=== PATIENT | female | born 1995 | race Two or more races ===

== ENCOUNTER 2021-02-16 16:49 | Emergency (ER) | payer OTHER, SELFPAY ==
--- NOTE | ~2021-02-16 | XR_ITS ---
EXAMINATION: XR CHEST CLINICAL INFORMATION: Hypertension COMPARISON: None TECHNIQUE: Frontal view of the chest was obtained. FINDINGS: No significant abnormality is noted involving the heart, lungs, mediastinum, bony thorax or soft tissues. XR/XR chest 1V IMPRESSION: Unremarkable examination.
[2021-02-16 17:51] VITALS: BP 186/89; PULSE 103; RESP 18; TEMP 37.1; O2SAT 96; BMI 57.6
== END 2021-02-16 19:40 | disposition left against medical advice (07) ==
PROVIDERS: Emergency Provider Emergency Medicine
DX: I10 Essential (primary) hypertension (principal)
CPT/HCPCS: 71045; 99282; 99283

== ENCOUNTER 2021-03-28 09:59 | Outpatient (REF) | payer OTHER, SELFPAY ==
[2021-03-28 11:15] LABS: MANUAL DIFF FLAG NO
[2021-03-28 11:25] LABS: Basophils Percent Auto 0.3 % (0-2); Eosinophils Absolute Auto 0.1 X10*3/uL (0.0-0.4); Eosinophils Percent Auto 1.5 % (0-4); Hematocrit 44.5 % (37-47); Hemoglobin 13.8 g/dl (12.0-16.0); Imm Gran Abs Auto 0.03 X10*3/uL (0.00-0.03); Imm Gran Pct Auto 0.3 % (0.0-0.4); Lymphocytes Absolute Auto 1.7 X10*3/uL (1.2-4.9); Lymphocytes Percent Auto 18.2 % (20-40); Mean Corpuscular Hemoglobin 23.5 pg (27.0-33.0); Mean Corpuscular Volume 75.9 fL (80-98); Mean Platelet Volume 10.2 fL (9.4-12.3); Monocytes Absolute Auto 0.4 X10*3/uL (0.1-1.2); Monocytes Percent Auto 4.7 % (2-11); Neutrophils Absolute Auto 6.9 X10*3/uL (2.0-8.3); Platelet Count 339 X10*3/uL (160-400); Red Blood Count 5.86 X10*6/uL (4.20-5.50); Red Cell Distribution Width 14.2 % (11.0-16.0); White Blood Count 9.2 X10*3/uL (4.8-10.8)
[2021-03-28 12:05] LABS: Alanine Aminotransferase 15 U/L (0-31); Albumin Level 3.8 g/dL (3.5-5.0); Alkaline Phosphatase 80 U/L (39-117); Anion Gap 16 (12-20); Aspartate Amino Transferase 16 U/L (5-31); Bilirubin Total 0.5 mg/dL (0.0-1.0); Blood Urea Nitrogen 9 mg/dL (9-16); Calcium 9.3 mg/dL (8.4-10.2); Carbon Dioxide 22 mmol/L (22-29); Chloride 106 mmol/L (96-108); Cholesterol 243 mg/dL; Estimated Glomerular Filt Rate > 60; Glucose Fasting 105 mg/dL (60-99); HDL Cholesterol 51 mg/dL; LDL Cholesterol Calculated 172 mg/dl; Potassium 4.5 mmol/L (3.3-5.1); Sodium 139 mmol/L (135-145); Triglycerides 103 mg/dL
[2021-03-28 12:07] LABS: TSH reflex Free T4 1.51 uIU/mL (0.32-4.0); Vitamin D 25-OH Total 21.6 ng/mL (>30)
== END 2021-03-28 10:00 | disposition home or self-care (01) ==
LOC: HO.HMGCLDS 09:59
PROVIDERS: PCP Internal Medicine; Visit Provider Internal Medicine
DX: E66.01 Morbid (severe) obesity due to excess calories (principal); I10 Essential (primary) hypertension
CPT/HCPCS: 36415; 80053; 80061; 82306; 84443; 85025

== ENCOUNTER → 2021-06-21 14:05 | Outpatient (BNVA) | payer OTHER, SELFPAY | PROVIDERS: PCP Internal Medicine; Referring Provider Internal Medicine; Visit Provider Internal Medicine | DX: E66.01 Morbid (severe) obesity due to excess calories (principal); I10 Essential (primary) hypertension | CPT/HCPCS: 93005; 99202 ==

== ENCOUNTER 2021-07-07 08:08 | Outpatient (REF) | payer OTHER, SELFPAY ==
--- NOTE | ~2021-07-07 | US_ITS ---
EXAMINATION: US DUPLEX RETROPERITONEAL, LIMITED CLINICAL INFORMATION: Hypertension COMPARISON: None. TECHNIQUE: Grayscale evaluation of the kidneys. Real-time evaluation of the abdominal aorta and main renal arteries. Real-time ultrasound and Doppler techniques (integrating B-mode 2D vascular images, Doppler spectral analysis and color flow Doppler imaging) were utilized to interrogate the aorta, main renal arteries, and intrarenal arteries. FINDINGS: RENAL ULTRASOUND: The right kidney measures 11.8 x 5.0 x 5.2 cm. The left kidney measures 11.2 x 5.3 x 5.5 cm. There is no dilation of the intrarenal collecting system either side. The renal cortical echogenicity is increased uniformly. There is no suspicious renal mass or shadowing calculus. There is no perinephric abnormality. COLOR MAPPING AND SPECTRAL ANALYSIS: The peak systolic velocity within the proximal abdominal aorta is 85 cm/s. Interrogation of the main renal artery demonstrates velocities (systolic/diastolic) as follows: Proximal right: Not visualized. Mid right: 23. Distal right: 51. Proximal left: 45. Mid left: 46. Distal left: 69. The right renal to aortic ratio is 0.6. The left renal to aortic ratio is 0.8. Both renal veins are patent. Resistive indices are normal bilaterally within the upper, mid, and lower poles. US/US renal doppler IMPRESSION: No evidence of obstructive uropathy. No evidence of hemodynamically significant renal artery stenosis. No evidence of cortical thinning or increased cortical echogenicity.
--- NOTE | ~2021-07-07 | US_ITS ---
EXAMINATION: US DUPLEX RETROPERITONEAL, LIMITED CLINICAL INFORMATION: Hypertension COMPARISON: None. TECHNIQUE: Grayscale evaluation of the kidneys. Real-time evaluation of the abdominal aorta and main renal arteries. Real-time ultrasound and Doppler techniques (integrating B-mode 2D vascular images, Doppler spectral analysis and color flow Doppler imaging) were utilized to interrogate the aorta, main renal arteries, and intrarenal arteries. FINDINGS: RENAL ULTRASOUND: The right kidney measures 11.8 x 5.0 x 5.2 cm. The left kidney measures 11.2 x 5.3 x 5.5 cm. There is no dilation of the intrarenal collecting system either side. The renal cortical echogenicity is increased uniformly. There is no suspicious renal mass or shadowing calculus. There is no perinephric abnormality. COLOR MAPPING AND SPECTRAL ANALYSIS: The peak systolic velocity within the proximal abdominal aorta is 85 cm/s. Interrogation of the main renal artery demonstrates velocities (systolic/diastolic) as follows: Proximal right: Not visualized. Mid right: 23. Distal right: 51. Proximal left: 45. Mid left: 46. Distal left: 69. The right renal to aortic ratio is 0.6. The left renal to aortic ratio is 0.8. Both renal veins are patent. Resistive indices are normal bilaterally within the upper, mid, and lower poles. US/US renal BI IMPRESSION: No evidence of obstructive uropathy. No evidence of hemodynamically significant renal artery stenosis. No evidence of cortical thinning or increased cortical echogenicity.
== END 2021-07-07 08:09 | disposition home or self-care (01) ==
LOC: HO.US 08:08
PROVIDERS: PCP Internal Medicine; Visit Provider Internal Medicine
DX: I10 Essential (primary) hypertension (principal); I70.1 Atherosclerosis of renal artery
CPT/HCPCS: 76775; 93975

== ENCOUNTER → 2021-07-25 08:32 | Outpatient (REF) | payer OTHER, SELFPAY ==
--- NOTE | 2021-07-25 08:35 | CA_ITS ---
Transthoracic Echocardiogram Patient (Last, First, Middle): Telma Barroso, Gender: Female Date of : 1995 Age: 25 Procedure Date: 07/25/2021 Procedure Type: Transthoracic Echocardiogram Location: OP Height: 162.56 cm Weight: 151.5 kg BSA: 2.43 m2 Heart Rate: bpm BP: 134 / 80 mmHg Gang Bore Operator: Referring MD: Beka Wade MD Symptoms: I10 - Essential (primary) hypertension Study Quality: Fair ECG Rhythm: Sinus Conclusions: - The left ventricular systolic function is normal. The visually estimated ejection fraction is between 60-65%. - There is mildly increased left ventricular wall thickness. - No obvious valvular pathology seen on this study. Findings Left Ventricle Normal left ventricular cavity size. There is mildly increased left ventricular wall thickness. The left ventricular systolic function is normal. The visually estimated ejection fraction is between 60-65%. There is no evidence of regional wall motion abnormalities. Diastolic function is normal for age. Right Ventricle Normal right ventricular cavity size and systolic function. Atria Both atria are normal in size. Aortic Valve There is a normal trileaflet aortic valve. There is no aortic valve stenosis. There is no aortic valve regurgitation. Mitral Valve The mitral valve appears normal. There is no mitral valve regurgitation. There is no mitral valve stenosis. Pulmonic Valve The pulmonic valve was not well visualized. Tricuspid Valve There is trace tricuspid valve regurgitation. The pulmonary artery systolic pressure is normal. Great Vessels The asc aorta is normal in size. Venous The inferior vena cava is normal in size and collapses greater than 50% with inspiration. Pericardium/Pleural There is no evidence of pericardial effusion. Prior Study Comparison No prior study available for comparison. Recommendations, Care & Conclusions No obvious valvular pathology seen on this study. Measurements 2D Linear Measurements IVSd: 1.39 0.6-0.9/0.6-1.0 cm LVIDd: 3.70 3.9-5.3/4.2-5.9 cm LVIDd Index: 1.52 2.4-3.2/2.2-3.1 cm/m2 LVIDs: 2.19 2.0-3.6 cm LVPWd: 1.27 0.7-1.1 cm Ao Root: 3.10 2.1-3.5 cm LA Diam: 3.00 2.7-3.8/3.0-4.0 cm LAIDs Index: 1.23 1.5-2.3 cm/m2 LV Mass: 214.87 67-162/88-224 g LV Mass Index: 88.42 43-95/49-115 g/m2 LVOT Diam: 2.20 3.0+(-)1.3 cm 2D Systolic Function EF 4C: 59.50 >55% EF 2C: 62.00 >55% EF BiP: 60.80 >55% Mitral Valve MV Pk E: 0.97 MV PK A: 0.33 MV Decel Time: 83.00 E/A: 3.00 E'Lateral: 14.60 E'Medial: 9.68 E/E' Med: 10.00 E/E' Lat: 6.60 PHT: 24.00 MVA PHT: 9.17 Decel [place]: 11.67 Aortic Valve AoV Pk Cedric: 1.56 AoV Mn Cedric: 1.06 AoV VTI: 0.29 AoV Pk Grad: 10.00 Aov Mn Grad: 5.00 PRATIMA Cont.VTI: 3.30 LVOT LVOT Pk Cedric: 1.30 LVOT Mn Cedric: 0.97 LVOT VTI: 0.25 LVOT Pk Grad: 7.00 LVOT Mn Grad: 4.00 LVOT Diam: 2.20 LVOT Area: 3.80 Diastolic Function MV Pk E: 0.97 MV Pk A: 0.33 E/A: 3.00 E'Medial: 9.68 E/E' Med: 10.00 E' Laterial: 14.60 E/E' Lat: 6.60 Right Ventricle TAPSE (mm): 25.00 TVS' Cedric: 11.00 Tricuspid Valve TR Pk Cedric: 2.13 TR Pk Grad: 18.00 Great Vessels Aorta Ao Root-2D: 3.10 2.0-3.7 cm Ao Asc: 2.90 2.1-3.4 cm Pulmonary Valve PV Pk Cedric: 0.96 Peak PV Grad: 4.00 Updated in Other Vendor System with Status of Final Beka Wade MD electronically signed on 07/27/2021 12:30:59 PM with status of Final
== END ==
LOC: HO.CARD 08:32
PROVIDERS: PCP Internal Medicine; Visit Provider Internal Medicine
DX: I10 Essential (primary) hypertension (principal)
CPT/HCPCS: 93306

== ENCOUNTER → 2021-08-01 12:33 | Outpatient (BNVA) | payer OTHER, SELFPAY | PROVIDERS: PCP Internal Medicine; Referring Provider Internal Medicine; Visit Provider Internal Medicine | DX: I10 Essential (primary) hypertension (principal); E66.01 Morbid (severe) obesity due to excess calories | CPT/HCPCS: 99212 ==

== ENCOUNTER 2021-08-02 10:16 | Outpatient (REF) | payer OTHER, SELFPAY ==
[2021-08-02 12:04] LABS: Alanine Aminotransferase 28 U/L (0-31); Anion Gap 13 (12-20); Aspartate Amino Transferase 21 U/L (5-31); Blood Urea Nitrogen 10 mg/dL (9-16); Calcium 9.4 mg/dL (8.4-10.2); Carbon Dioxide 23 mmol/L (22-29); Chloride 106 mmol/L (96-108); Cholesterol 237 mg/dL; Estimated Glomerular Filt Rate > 60; Glucose Fasting 108 mg/dL (60-99); HDL Cholesterol 50 mg/dL; LDL Cholesterol Calculated 157 mg/dl; Potassium 4.7 mmol/L (3.3-5.1); Sodium 137 mmol/L (135-145); Triglycerides 151 mg/dL
== END 2021-08-02 10:17 | disposition home or self-care (01) ==
LOC: HO.HMGCLDS 10:16
PROVIDERS: PCP Internal Medicine; Visit Provider Internal Medicine
DX: E66.01 Morbid (severe) obesity due to excess calories (principal); I10 Essential (primary) hypertension
CPT/HCPCS: 36415; 80048; 80061; 84450; 84460

== ENCOUNTER 2022-03-07 10:15 | Outpatient (REF) | payer SELFPAY ==
[2022-03-07 10:52] LABS: Binax Internal Control QC Valid; Binax Now Covid-19 Ag Negative (Negative)
[2022-03-07 12:10] LABS: Influenza A PCR NEGATIVE (Negative); Influenza B PCR NEGATIVE (Negative); Resp Syncy Virus RNA Qual PCR NEGATIVE (Negative); SARS COV2 PCR INHOUSE NEGATIVE (Negative)
== END 2022-03-07 10:16 | disposition home or self-care (01) ==
LOC: HO.HMGCLDS 10:15
PROVIDERS: PCP Internal Medicine; Visit Provider Physician Assistant
DX: Z20.822 Contact with and (suspected) exposure to COVID-19 (principal); J06.9 Acute upper respiratory infection, unspecified
CPT/HCPCS: 0241U; 87811

== ENCOUNTER 2023-10-23 12:02 | Outpatient (AMB) | payer OTHER, SELFPAY ==
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
[2023-10-23 12:07] VITALS: BP 122/76; PULSE 89; TEMP 36.3; O2SAT 98
== END 2023-10-23 12:55 | disposition home or self-care (01) ==
PROVIDERS: PCP Internal Medicine; Visit Provider Physician Assistant
DX: R19.7 Diarrhea, unspecified (principal); R11.2 Nausea with vomiting, unspecified
CPT/HCPCS: 81003; 81025; 99213

== ENCOUNTER 2024-01-09 10:46 | Outpatient (AMB) | payer OTHER, SELFPAY ==
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
[2024-01-09 11:01] VITALS: BP 128/88; PULSE 104; O2SAT 99; BMI 51.2
== END 2024-01-09 11:51 | disposition home or self-care (01) ==
PROVIDERS: PCP Internal Medicine; Visit Provider Internal Medicine
DX: Z00.00 Encounter for general adult medical examination without abnormal findings (principal); M54.50 Low back pain, unspecified; G89.29 Other chronic pain; K21.9 Gastro-esophageal reflux disease without esophagitis; R12 Heartburn
CPT/HCPCS: 1123F; 99214; 99497

== ENCOUNTER 2024-01-09 11:50 | Outpatient (REF) | payer OTHER, SELFPAY ==
[2024-01-09 13:30] LABS: MANUAL DIFF FLAG NO
[2024-01-09 13:48] LABS: Basophils Absolute Auto 0.1 X10*3/uL (0.0-0.2); Basophils Percent Auto 0.8 % (0-2); Eosinophils Absolute Auto 0.1 X10*3/uL (0.0-0.4); Eosinophils Percent Auto 0.8 % (0-4); Hematocrit 49.1 % (37.0-47.0); Hemoglobin 15.3 g/dl (12.0-16.0); Imm Gran Abs Auto 0.07 X10*3/uL (0.00-0.03); Imm Gran Pct Auto 0.8 % (0.0-0.4); Lymphocytes Absolute Auto 2.6 X10*3/uL (1.2-4.9); Lymphocytes Percent Auto 27.4 % (20-40); Mean Corpuscular HGB Conc 31.2 g/dl (31.0-35.0); Mean Corpuscular Hemoglobin 24.8 pg (27.0-33.0); Mean Corpuscular Volume 79.7 fL (80.0-98.0); Mean Platelet Volume 10.2 fL (9.4-12.3); Monocytes Absolute Auto 0.7 X10*3/uL (0.1-1.2); Neutrophils Absolute Auto 5.9 x10*3/uL (2.0-8.3); Neutrophils Percent Auto 63.2 % (45-73); Platelet Count 396 X10*3/uL (160-400); Red Blood Count 6.16 X10*6/uL (4.20-5.50); Red Cell Distribution Width 13.6 % (11.0-16.0); White Blood Count 9.3 X10*3/uL (4.8-10.8)
[2024-01-09 14:17] LABS: Alanine Aminotransferase 22 U/L (0-31); Albumin Level 4.2 g/dL (3.5-5.0); Alkaline Phosphatase 79 U/L (39-117); Anion Gap 10 (12-20); Aspartate Amino Transferase 25 U/L (5-31); Bilirubin Total 0.3 mg/dL (0.0-1.0); Blood Urea Nitrogen 6 mg/dL (9-16); Calcium 9.2 mg/dL (8.4-10.2); Carbon Dioxide 28 mmol/L (22-29); Chloride 106 mmol/L (96-108); Estimated Glomerular Filt Rate > 60; Glucose Fasting 89 mg/dL (60-99); Sodium 140 mmol/L (135-145); Total Protein 8.1 g/dL (6.5-8.0)
== END 2024-01-09 11:51 | disposition home or self-care (01) ==
LOC: HO.HMGCLDS 11:50
PROVIDERS: PCP Internal Medicine; Visit Provider Internal Medicine
DX: R10.10 Upper abdominal pain, unspecified (principal); K21.9 Gastro-esophageal reflux disease without esophagitis
CPT/HCPCS: 36415; 80053; 85025

== ENCOUNTER 2024-04-01 13:31 | Emergency (ER) | payer OTHER, SELFPAY ==
--- NOTE | ~2024-04-01 | XR_ITS ---
EXAMINATION: XR LUMBOSACRAL SPINE CLINICAL INFORMATION: Low back pain. COMPARISON: 05/09/2017 TECHNIQUE: Three views of the lumbosacral spine. FINDINGS: There are 5 nonrib-bearing lumbar vertebral bodies. Relative straightening of the lumbar lordosis. There is minimal retrolisthesis of L5 on S1. Vertebral body heights and intervertebral disc spaces are maintained. Sacroiliac joints are intact. XR/XR lumbar spine 2-3V IMPRESSION: No acute abnormality.
[2024-04-01 14:03] VITALS: BP 170/112; PULSE 97; RESP 17; TEMP 36.7; O2SAT 99; BMI 50.6
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
[2024-04-01 17:26] VITALS: BP 187/119; PULSE 83; RESP 16; TEMP 36.8; O2SAT 100
[2024-04-01] MEDS: Lidocaine 4 % Patch ADH..PATCH 1 PATCH TRANSDERMA (18:08)
[2024-04-01] MEDS: Morphine Sulfate Immed Release 15 MG TABLET PO (18:09)
[2024-04-01] MEDS: Cyclobenzaprine HCl 10 MG TABLET PO (18:09)
[2024-04-01] MEDS: Ketorolac Tromethamine 30 MG/ML VIAL IM (18:10)
[2024-04-01 18:58] VITALS: BP 124/88; PULSE 73; RESP 16; TEMP 36.7; O2SAT 99
[2024-04-01 19:16] VITALS: BP 124/88; PULSE 73; RESP 16; TEMP 36.7; O2SAT 99
== END 2024-04-01 19:17 | disposition home or self-care (01) ==
PROVIDERS: Emergency Provider Internal Medicine; PCP Internal Medicine
DX: S39.012A Strain of muscle, fascia and tendon of lower back, initial encounter (principal); X50.9XXA Other and unspecified overexertion or strenuous movements or postures, initial encounter; Y93.K1 Activity, walking an animal; Y92.480 Sidewalk as the place of occurrence of the external cause; Y99.9 Unspecified external cause status
CPT/HCPCS: 72100; 96372; 99283; 99284; J1885

== ENCOUNTER 2024-05-06 13:59 | Outpatient (AMB) | payer OTHER, SELFPAY ==
[2024-05-06 14:11] VITALS: BP 162/91; PULSE 102; BMI 48.0
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
== END 2024-05-06 14:43 | disposition home or self-care (01) ==
PROVIDERS: PCP Internal Medicine; Visit Provider Internal Medicine
DX: R12 Heartburn (principal); R11.2 Nausea with vomiting, unspecified; K21.9 Gastro-esophageal reflux disease without esophagitis; E66.01 Morbid (severe) obesity due to excess calories
CPT/HCPCS: 99204

== ENCOUNTER → 2024-05-06 13:59 | Outpatient (BNVA) | payer OTHER, SELFPAY | PROVIDERS: PCP Internal Medicine; Visit Provider Internal Medicine | DX: K21.9 Gastro-esophageal reflux disease without esophagitis (principal); R12 Heartburn; R11.2 Nausea with vomiting, unspecified; E66.01 Morbid (severe) obesity due to excess calories | CPT/HCPCS: 99202 ==

== ENCOUNTER 2024-05-07 09:03 | Outpatient (REF) | payer OTHER, SELFPAY ==
--- NOTE | ~2024-05-07 | FL_ITS ---
EXAMINATION: XR FLUOROSCOPY UPPER GI WITH AIR CLINICAL INFORMATION: Reflux COMPARISON: None TECHNIQUE: Fluoroscopic air contrast upper GI examination was performed utilizing standard techniques with thin and thick barium and effervescent granules. Numerous spot images were obtained. FINDINGS: Dual and single contrast images of the esophagus demonstrate normal caliber, contour, and mucosal pattern. Mild cricopharyngeal achalasia is present. No evidence of stricture, mass, or ulcerations identified. Esophageal peristalsis was normal. No evidence of hiatus hernia identified. No significant gastroesophageal reflux was seen during the course of the examination and on reflux views. Dual contrast and single contrast images of the stomach demonstrated a normal contour. The gastric rugal folds and the areae gastrica have a thickened/prominent appearance suggestive of gastritis. No masses or ulcerations are seen. Contrast freely passed into the gastric antrum and duodenal bulb without delay. Single and air-contrast images of the duodenal bulb demonstrate no abnormality. The duodenal sweep has a normal appearance, course, and mucosal fold appearance. The imaged proximal jejunum has a normal fold pattern and caliber. FLUOROSCOPY TIME: 4 minutes 7 seconds Number of Spot Images: 10 Number of Cine: 14 DOSE AREA PRODUCT: 3009 uGy-m2 (microgray-meter squared) FL/FL upper GI w Ba Swallow IMPRESSION: 1. Mild cricopharyngeal achalasia. 2. Thickened appearance of the gastric rugal folds and the areae gastrica, which suggests gastritis. This procedure was performed by Flavio Gar PA-C, and supervised by Dr. Marie Electronically signed by: Shyam Marie MD 05/08/2024 05:39 PM EDT
== END 2024-05-07 09:04 | disposition home or self-care (01) ==
LOC: HO.XRAY 09:03
PROVIDERS: PCP Internal Medicine; Visit Provider Internal Medicine
DX: K21.9 Gastro-esophageal reflux disease without esophagitis (principal)
CPT/HCPCS: 74240

== ENCOUNTER → 2024-05-07 09:05 | Outpatient (BNV) | payer OTHER, SELFPAY | PROVIDERS: PCP Internal Medicine; Visit Provider Radiology Diagnostic Radiology | DX: K21.9 Gastro-esophageal reflux disease without esophagitis (principal) | CPT/HCPCS: 74246 ==

== ENCOUNTER 2024-05-13 12:26 | Outpatient (AMB) | payer OTHER, SELFPAY ==
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
[2024-05-13 12:43] VITALS: BP 132/90; PULSE 120; O2SAT 98; BMI 49.1
== END 2024-05-13 13:31 | disposition home or self-care (01) ==
PROVIDERS: PCP Internal Medicine; Visit Provider Registered Nurse
DX: N92.6 Irregular menstruation, unspecified (principal); Z32.02 Encounter for pregnancy test, result negative
CPT/HCPCS: 81025; 99213

== ENCOUNTER 2024-05-13 13:15 | Outpatient (REF) | payer OTHER, SELFPAY ==
[2024-05-13 16:38] LABS: HCG Quantitative < 2 mIU/mL
== END 2024-05-13 13:16 | disposition home or self-care (01) ==
LOC: HO.HMGCLDS 13:15
PROVIDERS: PCP Internal Medicine; Visit Provider Registered Nurse
DX: N92.6 Irregular menstruation, unspecified (principal); Z32.02 Encounter for pregnancy test, result negative
CPT/HCPCS: 36415; 84702

== ENCOUNTER 2024-07-20 14:12 | Outpatient (REF) | payer OTHER, SELFPAY ==
[2024-07-20 18:08] LABS: Influenza A PCR NEGATIVE (Negative); Influenza B PCR NEGATIVE (Negative); Resp Syncy Virus RNA Qual PCR NEGATIVE (Negative); SARS COV2 PCR INHOUSE NEGATIVE (Negative)
== END 2024-07-20 14:13 | disposition home or self-care (01) ==
LOC: HO.LAB 14:12
PROVIDERS: PCP Internal Medicine; Visit Provider Physician Assistant
DX: R11.2 Nausea with vomiting, unspecified (principal); R19.7 Diarrhea, unspecified
CPT/HCPCS: 0241U; 99212

== ENCOUNTER 2024-07-20 14:12 | Outpatient (AMB) | payer OTHER, SELFPAY ==
[2024-07-20 14:29] VITALS: BP 130/88; PULSE 89; TEMP 37; O2SAT 98; BMI 49.1
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
== END 2024-07-20 15:26 | disposition home or self-care (01) ==
PROVIDERS: PCP Internal Medicine; Visit Provider Physician Assistant
DX: R11.2 Nausea with vomiting, unspecified (principal); R19.7 Diarrhea, unspecified

== ENCOUNTER → 2024-10-21 14:17 | Outpatient (BNVA) | payer OTHER, SELFPAY | PROVIDERS: PCP Internal Medicine ==

== ENCOUNTER 2024-10-21 15:00 | Emergency (ER) | payer OTHER, SELFPAY ==
--- NOTE | ~2024-10-21 | US_ITS ---
CLINICAL HISTORY: + preg, vaginal bleeding US OB 1st trimester transabdominal Comparison: None Findings: Uterus is anteverted. Endometrium is measuring 4 mm in thickness. No sonographic evidence of intrauterine . CRL: Not seen. Right ovary measures 2.8 x 2.1 x 1.8 cm. 1.3 cm cyst is noted within the right ovary Left ovary measures 4.5 x 3.2 x 3.3 cm. A 2.5 cm cyst is noted within the left ovary. IMPRESSION: Currently, no sonographic evidence of intrauterine . Short-term follow-up with serial beta HCG is recommended. This document has been electronically signed by: Mike Richards MD on 10/21/2024 18:42:26
[2024-10-21 15:12] VITALS: BP 190/116; PULSE 92; RESP 20; TEMP 36.4; O2SAT 100; BMI 48.0
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
[2024-10-21 15:58] LABS: MANUAL DIFF FLAG NO
[2024-10-21 16:03] LABS: Basophils Absolute Auto 0.1 X10*3/uL (0.0-0.2); Basophils Percent Auto 0.4 % (0-2); Eosinophils Percent Auto 0.1 % (0-4); Hematocrit 48.8 % (37.0-47.0); Hemoglobin 15.6 g/dl (12.0-16.0); Imm Gran Abs Auto 0.04 X10*3/uL (0.00-0.03); Imm Gran Pct Auto 0.3 % (0.0-0.4); Lymphocytes Absolute Auto 1.8 X10*3/uL (1.2-4.9); Lymphocytes Percent Auto 14.4 % (20-40); Mean Corpuscular Hemoglobin 26.3 pg (27.0-33.0); Mean Corpuscular Volume 82.3 fL (80.0-98.0); Monocytes Absolute Auto 0.7 X10*3/uL (0.1-1.2); Monocytes Percent Auto 5.5 % (2-11); Neutrophils Absolute Auto 9.9 x10*3/uL (2.0-8.3); Neutrophils Percent Auto 79.3 % (45-73); Platelet Count 349 X10*3/uL (160-400); Red Blood Count 5.93 X10*6/uL (4.20-5.50); Red Cell Distribution Width 13.3 % (11.0-16.0); White Blood Count 12.5 X10*3/uL (4.8-10.8)
[2024-10-21 16:32] LABS: Alanine Aminotransferase 41 U/L (0-31); Albumin Level 3.9 g/dL (3.5-5.0); Alkaline Phosphatase 71 U/L (39-117); Anion Gap 13 (12-20); Aspartate Amino Transferase 45 U/L (5-31); Bilirubin Total 0.8 mg/dL (0.0-1.0); Blood Urea Nitrogen 4 mg/dL (9-16); Calcium 9.5 mg/dL (8.4-10.2); Carbon Dioxide 24 mmol/L (22-29); Chloride 104 mmol/L (96-108); Creatinine Clr Calc Pharmacy 134.9; Estimated Glomerular Filt Rate > 60; Glucose Random 89 mg/dL (60-115); HCG Quantitative 1068 mIU/mL; Lipase 11 U/L (8-78); Magnesium 1.9 mg/dL (1.6-2.6); Potassium 4.2 mmol/L (3.3-5.1); Sodium 137 mmol/L (135-145); Total Protein 8.1 g/dL (6.5-8.0)
[2024-10-21 16:47] LABS: Appearance Urine Clear; Color Urine Yellow; Glucose Urine UA Negative (Negative); Leukocyte Esterase Urine Trace (Negative); Nitrite Urine Negative (Negative); PH 7.5 (5.0-9.0); Specific Gravity - Urine <= 1.005 (1.005-1.025); UMIC TRIGGER UACC YES; Urine Blood Large (3+) (Negative); Urine Ketones 15 mg/dL (Negative); Urine Protein Negative (Neg-Trace)
[2024-10-21 16:49] LABS: UPreg QC Valid YES; Urine Pregnancy POSITIVE (NEGATIVE)
[2024-10-21 17:03] LABS: Bacteria Urine None Seen (None Seen); Hyaline Casts Urine 0-2 /LPF (0-2); RBC Urine 0-2 /HPF (0-2); Squamous Epithelial Cell Urine 0-2 /HPF (0-2); WBC Urine 0-5 /HPF (0-5)
--- OUTSIDE RECORDS SUMMARY | 2024-10-21 20:54 | XMS_ITS | Clinical Summary ---
Author Organization [facility] Address [address] [place] [phone] Phone Care Team Providers Care Recreation Adviser Name Role Phone Unavailable Primary Care Provider Unavailabl e Medications KURVELO 0.15-30 MG-MCG per tabletIndication s:Healthcare maintenance TAKE 1 TABLET ONCE A DAY 84 tablet 3 11/26/2017 Active Active Problems Patient Care Coordination No te Formatting of this note migh t be different from the original. 11/28/18 - [facility] #3 letter mailed, chart inactivated No additional problems on file Immunizations Name Administration Dates Next Due DTaP 09/13/1999, 7,03/09/1996,01/01,1995 H1N1 07/19/2009 HPV, Quadrivalent 05/18/2009,02/12/2008,02/01/20 07 Hep B, ped/adol 06/01/1996,1995,1995 Hib (PRP-T) 12/07/1996, 6,01/02/1996,11/07 IPV 09/13/1999 Influenza 05/18/2009, 8,09/05/2007,07/11 Influenza, injectable, quadr ivalent, preservative free 08/02/2015,07/30/2014,06/08/2013 Influenza, injectable, trivalent 07/28/2012,06/16 Influenza, intranasal, trivalent 05/18/2011 MMR 11/05/2000,12/07/1996 Meningococcal Conj (Menactra) MCV4P 07/15/2013,0 02/12/2008 OPV 03/09/1996,01/02/1996,1995 Tdap 03/05/2015,12/16/2007 Varicella 01/31/2007,08/24/1998 Family History Relation Name Status Comments Maternal Grandfather Materna l Uncle: 2 uncles with diabetes Other 2 uncles with d iabetes Social History Tobacco Use Types Packs/Day Years Used Date Smoking Tobacco: Never Assessed Comments Unknown Sex and Gender Information Value Date Recorded Sex Assigned at Not on file Legal Sex Female 10:43 PM EST Gender Identity Not on file Sexual Orientation Not on file Last Filed Vital Signs Vital Sign Reading Time Taken Comments Blood Pressure 138/86 02/07/2017 12:00 AM EDT Pulse 77 08/23/2016 12:00 AM EST Temperature 36.8 ??C (98.3 ??F) 07/24/2016 12:[address] Respiratory Rate - - Oxygen Saturation - - Inhaled Oxygen Concentration - - Weight 121 kg (267 lb) 02/07/2017 12:00 AM EDT Height 163.8 cm (5' 4.5 ) 08/23/2016 12:00 AM ES T Body Mass Index 45.12 08/23/2016 12:00 AM EST Plan of Treatment Health Maintenance Due Date Last Done Comments Influenza Vaccines (#1) 2024 08/02/20 15, 07/30/2014, 06/08/2013, Additional history exists COVID-19 Vaccine ( season) 2024 DTaP,Tdap,and Td Vaccines (8 - Td or Tdap) 03/05/2025 03/05/2015, 12/16/2007, 09/13/1999, Additional history exists Hepatitis B Vaccines Completed 06/01/1996, 1995, 1995 HIB Vaccines Completed 12/07/1996, 02/15, 01/02/1996, Additional history exists IPV Vaccines Completed 09/13/1999, 02/15, 01/02/1996, Additional history exists MMR Vaccines Completed 11/05/2000, 12/07/1996 Varicella Vaccines Completed 01/31/2007, 08/24/1998 HPV Vaccines Completed 05/18/2009, 01/15, 01/31/2007 Meningococcal Vaccine Completed 07/15/2013, 008 Hepatitis A Vaccines Aged Out No long er eligible based on patient's age to complete this topic Men B Vaccine Aged Out No longer elig ible based on patient's age to complete this topic Pneumococcal Vaccine Aged Out No long er eligible based on patient's age to complete this topic Procedures * Due to [place] Meal Sharing law, this organization might not be sharing sensitive test results. Procedure Name Priority Date/Time Associated Diagnosis Comments CHLAMYDIALGONORRHOEAL DETECTION BY PCR Routine 01/23/2016 12:00 AM EDT from Last 3 Months or Most Recently Relevant to Health Maintenance Results * Due to [place] Meal Sharing law, this organization might not be sharing sensitive test results. * CHLAMYDIALGONORRHOEAL DETECTION BY PCR (01/23/2016 12:00 AM EDT) GC PCR Not Detected CONVERT ED LABS Comment: Eleanor Roper ??01/20/2016 05:29:26 PM > , Urine sample labeled and sent to [facility] Negative Reason: Received -[facility] Lab Order Service Representative CHLAMYDIA PCR Not Detected CON VERTED LABS Comment: Eleanor Roper ??01/20/2016 05:29:26 PM > , Urine sample labeled and sent to [facility] Negative Reason: Received -[facility] Lab Order Service Representative 01/23/2016 Narrative CONVERTED LABS - 01/23/2016 12:00 AM EDT Chlamydial/Gonorrhoeal Detection by PCR us Bhavani Porter MD EXTERNAL RESULTS CONSOLE Final Result CONVERTED LABS from Last 3 Months or Most Recently Relevant to Health Maintenance
[2024-10-21 22:34] VITALS: BP 182/115; PULSE 68; RESP 16; TEMP 36.9; O2SAT 100
[2024-10-21 22:52] VITALS: BP 182/115; PULSE 68; RESP 16; TEMP 36.9; O2SAT 100
== END 2024-10-21 22:53 | disposition home or self-care (01) ==
PROVIDERS: Physician Assistant Medical; Emergency Provider Emergency Medicine; PCP Internal Medicine
DX: O20.9 Hemorrhage in early pregnancy, unspecified (principal); N93.9 Abnormal uterine and vaginal bleeding, unspecified; R10.9 Unspecified abdominal pain; M54.50 Low back pain, unspecified
CPT/HCPCS: 36415; 76801; 76817; 80053; 81001; 81003; 81025; 83690; 83735; 84702; 85025; 86850; 86900; 86901; 99212; 99283; 99284

== ENCOUNTER 2024-10-24 10:22 | Emergency (ER) | payer OTHER, SELFPAY ==
[2024-10-24 10:25] VITALS: BP 156/97; PULSE 85; RESP 16; TEMP 36; O2SAT 97; BMI 48.1
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
[2024-10-24 10:46] LABS: MANUAL DIFF FLAG NO
[2024-10-24 10:48] LABS: Basophils Absolute Auto 0.1 X10*3/uL (0.0-0.2); Basophils Percent Auto 0.7 % (0-2); Eosinophils Absolute Auto 0.1 X10*3/uL (0.0-0.4); Eosinophils Percent Auto 0.7 % (0-4); Hematocrit 47.8 % (37.0-47.0); Hemoglobin 15.5 g/dl (12.0-16.0); Imm Gran Abs Auto 0.04 X10*3/uL (0.00-0.03); Imm Gran Pct Auto 0.4 % (0.0-0.4); Lymphocytes Absolute Auto 1.8 X10*3/uL (1.2-4.9); Lymphocytes Percent Auto 16.3 % (20-40); Mean Corpuscular HGB Conc 32.4 g/dl (31.0-35.0); Mean Corpuscular Hemoglobin 26.5 pg (27.0-33.0); Mean Corpuscular Volume 81.8 fL (80.0-98.0); Mean Platelet Volume 9.9 fL (9.4-12.3); Monocytes Absolute Auto 0.7 X10*3/uL (0.1-1.2); Monocytes Percent Auto 6.1 % (2-11); Neutrophils Absolute Auto 8.5 x10*3/uL (2.0-8.3); Neutrophils Percent Auto 75.8 % (45-73); Platelet Count 324 X10*3/uL (160-400); Red Blood Count 5.84 X10*6/uL (4.20-5.50); Red Cell Distribution Width 13.5 % (11.0-16.0); White Blood Count 11.3 X10*3/uL (4.8-10.8)
--- OUTSIDE RECORDS SUMMARY | 2024-10-24 10:48 | XMS_ITS | Clinical Summary ---
Author Organization [facility] Address [address] [place] [phone] Phone Care Team Providers Care Undercutter Name Role Phone Unavailable Primary Care Provider Unavailabl e Medications KURVELO 0.15-30 MG-MCG per tabletIndication s:Healthcare maintenance TAKE 1 TABLET ONCE A DAY 84 tablet 3 11/26/2017 Active Active Problems Patient Care Coordination No te Formatting of this note migh t be different from the original. [place]28[place] [facility] [place] inactivated No additional problems on file Immunizations Immunization Administration Dates Next Due DTaP 09/13/1999, 7,03/09/1996,01/01,1995 [...] complete this topic Procedures * Due to [place] [employer] law, this organization might not be sharing sensitive test results. Procedure Name Priority Date/Time Associated Diagnosis Comments CHLAMYDIALGONORRHOEAL DETECTION BY PCR Routine 01/23/2016 12:00 AM EDT from Last 3 Months or Most Recently Relevant to Health Maintenance Results * Due to [place] [employer] law, this organization might not be sharing sensitive test results. * CHLAMYDIALGONORRHOEAL DETECTION BY PCR (01/23/2016 12:00 AM EDT) GC PCR Not Detected CONVERT ED LABS Comment: Eleanor Roper ??01/20/2016 05:29:26 PM > , Urine sample labeled and sent to [facility] Negative Reason: Received -[facility] Lab Order [employer] CHLAMYDIA PCR Not Detected CON VERTED LABS Comment: Eleanor Roper ??01/20/2016 05:29:26 PM > , Urine sample labeled and sent to [facility] Negative Reason: Received -[facility] Lab Order [employer] 01/23/2016 Narrative CONVERTED LABS - 01/23/2016 12:00 AM EDT Chlamydial/Gonorrhoeal Detection by PCR us Bhavani Porter MD EXTERNAL RESULTS CONSOLE Final Result CONVERTED LABS from Last 3 Months or Most Recently Relevant to Health Maintenance
[2024-10-24 11:06] LABS: Anion Gap 11 (12-20); Blood Urea Nitrogen 8 mg/dL (9-16); Calcium 9.2 mg/dL (8.4-10.2); Carbon Dioxide 24 mmol/L (22-29); Chloride 108 mmol/L (96-108); Creatinine Clr Calc Pharmacy 155.5; Estimated Glomerular Filt Rate > 60; Glucose Random 91 mg/dL (60-115); Sodium 139 mmol/L (135-145)
[2024-10-24 11:29] LABS: HCG Quantitative 366 mIU/mL
[2024-10-24 12:26] VITALS: BP 161/89; PULSE 76; RESP 16; TEMP 36.4; O2SAT 100
[2024-10-24 12:30] VITALS: BP 161/89; PULSE 76; RESP 16; TEMP 36.4; O2SAT 100
== END 2024-10-24 12:35 | disposition home or self-care (01) ==
PROVIDERS: Emergency Provider Emergency Medicine; PCP Internal Medicine
DX: O03.9 Complete or unspecified spontaneous abortion without complication (principal)
CPT/HCPCS: 36415; 80048; 84702; 85025; 99283; 99284

== ENCOUNTER 2024-11-04 12:37 | Outpatient (AMB) | payer OTHER, SELFPAY ==
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
[2024-11-04 12:48] VITALS: BP 130/80; PULSE 82; RESP 16; TEMP 36.7; O2SAT 99; BMI 48.1
--- OUTSIDE RECORDS SUMMARY | 2024-11-04 12:55 | XMS_ITS | Encounter Summary ---
Author Organization [facility] Address [address] [place] [address] Phone Care Team Providers Care Campaign Fundraiser Name Role Phone Bhavani Porter MD Primary Care Provider [phone] Encounter Details Date Type Department Care Team (Late st Contact Info) Description 04/24/2017 Conversion Encounter [facility] - [address], [address] [place] [address] Bhavani Porter MD [address] [place] [address] Social History Tobacco Use Types Packs/Day Years Used Date Smoking Tobacco: Never Assessed Comments Unknown Sex and Gender Information Value Date Recorded Sex Assigned at Not on file Legal Sex Female 10:43 PM EST Gender Identity Not on file Sexual Orientation Not on file documented as of this encounter Plan of Treatment Not on file documented as of this encounter Visit Diagnoses Not on filedocumented in this encounter Care Teams Campaign Fundraiser Relationship Specialty Start Date End Date Bhavani Porter MD [address] [place] [address] PCP - General 11/06/16 04/03/21 documented as of this encounter
--- OUTSIDE RECORDS SUMMARY | 2024-11-04 12:55 | XMS_ITS | Clinical Summary ---
Author Organization [facility] Address [address] [place] [address] Phone Care Team Providers Care Conveyor Console Operator Name Role Phone Unavailable Primary Care Provider Unavailabl e Medications KURVELO 0.15-30 MG-MCG per tabletIndication s:Healthcare maintenance TAKE 1 TABLET ONCE A DAY 84 tablet 3 11/26/2017 Active Active Problems Patient Care Coordination No te Formatting of this note migh t be different from the original. 11/28/18 - [facility] [place] #3 letter mailed, chart inactivated No additional [...] complete this topic Procedures * Due to [place] [employer] law, this organization might not be sharing sensitive test results. Procedure Name Priority Date/Time Associated Diagnosis Comments CHLAMYDIALGONORRHOEAL DETECTION BY PCR Routine 01/23/2016 12:00 AM EDT from Last 3 Months or Most Recently Relevant to Health Maintenance Results * Due to [place] [employer] law, this organization might not be sharing sensitive test results. * CHLAMYDIALGONORRHOEAL DETECTION BY PCR (01/23/2016 12:00 AM EDT) GC PCR Not Detected CONVERT ED LABS Comment: Eleanor Roper ??01/20/2016 05:29:26 PM > , Urine sample labeled and sent to [facility] Negative Reason: Received -[facility] Lab Order Automotive Manufacturer CHLAMYDIA PCR Not Detected CON VERTED LABS Comment: Eleanor Roper ??01/20/2016 05:29:26 PM > , Urine sample labeled and sent to [facility] Negative Reason: Received -[facility] Lab Order Automotive Manufacturer 01/23/2016 Narrative CONVERTED LABS - 01/23/2016 12:00 AM EDT Chlamydial/Gonorrhoeal Detection by PCR us Bhavani Porter MD EXTERNAL RESULTS CONSOLE Final Result CONVERTED LABS from Last 3 Months or Most Recently Relevant to Health Maintenance
== END 2024-11-04 13:29 | disposition home or self-care (01) ==
PROVIDERS: PCP Internal Medicine; Visit Provider Internal Medicine
DX: Z00.00 Encounter for general adult medical examination without abnormal findings (principal); E78.5 Hyperlipidemia, unspecified; E66.01 Morbid (severe) obesity due to excess calories; Z68.42 Body mass index [BMI] 45.0-49.9, adult; F10.10 Alcohol abuse, uncomplicated; J35.1 Hypertrophy of tonsils; K21.9 Gastro-esophageal reflux disease without esophagitis; I10 Essential (primary) hypertension

== ENCOUNTER → 2024-11-04 12:37 | Outpatient (BNVA) | payer OTHER, SELFPAY | PROVIDERS: PCP Internal Medicine; Visit Provider Internal Medicine | DX: Z00.01 Encounter for general adult medical examination with abnormal findings (principal); E78.5 Hyperlipidemia, unspecified; E66.01 Morbid (severe) obesity due to excess calories; Z68.42 Body mass index [BMI] 45.0-49.9, adult; F10.10 Alcohol abuse, uncomplicated; J35.1 Hypertrophy of tonsils; K21.9 Gastro-esophageal reflux disease without esophagitis; I10 Essential (primary) hypertension; Z71.3 Dietary counseling and surveillance | CPT/HCPCS: 96127; 99395 ==

== ENCOUNTER 2024-12-03 07:36 | Day surgery (SDC) | payer OTHER, SELFPAY ==
--- OUTSIDE RECORDS SUMMARY | 2024-11-18 18:21 | XMS_ITS | Clinical Summary ---
Author Organization [facility] Address [address] [place] [address] Phone Care Team Providers Care Lastex Thread Winder Name Role Phone Unavailable Primary Care Provider Unavailabl e Medications KURVELO 0.15-30 MG-MCG per tabletIndication s:Healthcare maintenance TAKE 1 TABLET ONCE A DAY 84 tablet 3 11/26/2017 Active Active Problems Patient Care Coordination No te Formatting of this note migh t be different from the original. 11/28/18 [place] [facility] [place], chart inactivated No additional [...] complete this topic Procedures * Due to [place] [employer] law, this organization might not be sharing sensitive test results. Procedure Name Priority Date/Time Associated Diagnosis Comments CHLAMYDIALGONORRHOEAL DETECTION BY PCR Routine 01/23/2016 12:00 AM EDT from Last 3 Months or Most Recently Relevant to Health Maintenance Results * Due to [place] [employer] law, this organization might not be sharing sensitive test results. * CHLAMYDIALGONORRHOEAL DETECTION BY PCR (01/23/2016 12:00 AM EDT) GC PCR Not Detected CONVERT ED LABS Comment: Eleanor Roper ??01/20/2016 05:29:26 PM > , Urine sample labeled and sent to [facility] Negative Reason: Received -[facility] Lab Order Performance Consultant CHLAMYDIA PCR Not Detected CON VERTED LABS Comment: Eleanor Roper ??01/20/2016 05:29:26 PM > , Urine sample labeled and sent to [facility] Negative Reason: Received -[facility] Lab Order Performance Consultant 01/23/2016 Narrative CONVERTED LABS - 01/23/2016 12:00 AM EDT Chlamydial/Gonorrhoeal Detection by PCR us Bhavani Porter MD EXTERNAL RESULTS CONSOLE Final Result CONVERTED LABS from Last 3 Months or Most Recently Relevant to Health Maintenance
--- OUTSIDE RECORDS SUMMARY | 2024-11-18 18:21 | XMS_ITS | Encounter Summary ---
Author Organization [facility] Address [address] [place] [address] Phone Care Team Providers Care Steward/Stewardess Tourist Class Name Role Phone Bhavani Porter MD Primary Care Provider [phone] Encounter Details Date Type Department Care Team (Late st Contact Info) Description 04/24/2017 Conversion Encounter [facility] - [address], [address] [place] [address] Bhavani Porter MD [address] [place] [address] Social History Tobacco Use Types Packs/Day Years [...] on filedocumented in this encounter Care Teams Steward/Stewardess Tourist Class Relationship Specialty Start Date End Date Bhavani Porter MD [address] [place] [address] PCP - General 11/06/16 04/03/21 documented as of this encounter
[2024-12-01 10:58] VITALS: BMI 48.1
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
[2024-12-03 07:54] VITALS: BMI 47.1
[2024-12-03 07:57] LABS: UPreg QC Valid YES; Urine Pregnancy NEGATIVE (NEGATIVE)
[2024-12-03] MEDS: Lactated Ringers 1,000 ML 100 ML IVCONT (07:58)
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
[2024-12-03 08:07] VITALS: BP 151/101; PULSE 83; RESP 18; TEMP 36.7; O2SAT 96
[2024-12-03 08:40] VITALS: BP 166/99
--- NOTE | 2024-12-03 09:22 | P.OP_ITS ---
Operative Note Operative Note Date of Service: 12/03/24 Narrative: Procedure: Esophagogastroduodenoscopy Endoscopist: Roberta Grimm MD Indication: GERD, abnormal barium swallow Anesthesia Provider: Dr Rica Costa Anesthesia Type: MAC ?? EGD Procedure:?? The procedure, indications, preparation and potential complications were reviewed with the patient, who indicated understanding and gave written informed consent to proceed. A physical exam was performed. The endoscope was introduced through the mouth, and advanced to the second part of duodenum. The mucosa was carefully examined on slow withdrawal of the endoscope. The patient tolerated the procedure well. There were no immediate complications.? ? EGD Findings:? * Esophagus:? Small erosions measuring < 5 mm noted at GE junction. The Z line was at 40 cm. Middle and lower esophagus forceps biopsies were obtained to rule out eosinophilic esophagitis. * Stomach:? Erytheme and edema noted in the distal body and antrum. Retroflexion was performed in the cardia that showed Hill grade III valve. Cold forceps biopsies were taken from antrum and body to rule out H Pylori infection. * Duodenum:? Normal mucosa was noted in the whole of the examined duodenum. Cold forceps biopsies were taken from duodenal bulb and second portion of the duode num to rule out celiac sprue. Additional intervention: Soft tip Savary wire was introduced through the biopsy channel of the gastroscope and advanced to the antrum. ?The gastroscope was then backed out. ?Savary Marsha bougie was advanced over the guidewire and the esophagus was dilated to 19 mm with resistance felt. ?On relook, superficial tear was noted at 18 cm confirming successful dilation. ? ? EGD Impressions:? * Cricopharyngeal stenosis (dilation) * Grade A esophagitis (biopsy) * Hiatal hernia * Gastritis (biopsy) * Normal duodenum (biopsy) ?? Recommendations:?? * Follow biopsy results. Our office will call or send a letter with results within 7-10 days. * Switch to esomeprazole 20 BID x 8 weeks and then once daily * If H pylori +, patient will be prescribed eradication therapy followed by test of cure. * Avoid NSAIDs. * Of note - pt noted to be hypertensive throughout short stay and reports any time she goes on OCPs her BP runs high - advised to discuss with PCP/ObGYN. Above has been reviewed with the patient.
[2024-12-03 09:25] VITALS: BP 171/107; PULSE 96; RESP 18; TEMP 36.2; O2SAT 100
[2024-12-03 09:40] VITALS: BP 164/110; PULSE 83; RESP 16; TEMP 36.2; O2SAT 100
== END 2024-12-03 10:06 | disposition home or self-care (01) ==
PROVIDERS: Nurse Practitioner; PCP Internal Medicine; Visit Provider Internal Medicine
PROC: 0DJ08ZZ Inspection of Upper Intestinal Tract, Via Natural or Artificial Opening Endoscopic (ICD-10-PCS; CPT 43235; principal; 2024-12-03 09:20)
DX: R93.3 Abnormal findings on diagnostic imaging of other parts of digestive tract (principal); K21.9 Gastro-esophageal reflux disease without esophagitis; J39.2 Other diseases of pharynx; K20.90 Esophagitis, unspecified without bleeding; K29.70 Gastritis, unspecified, without bleeding; K44.9 Diaphragmatic hernia without obstruction or gangrene; G89.29 Other chronic pain; M54.50 Low back pain, unspecified; I10 Essential (primary) hypertension; R94.31 Abnormal electrocardiogram [ECG] [EKG]; Z79.899 Other long term (current) drug therapy
CPT/HCPCS: 43248; 43239; 81025; 88305; 88313; 88342; C1769; J2250; J2704

== ENCOUNTER → 2024-12-03 07:36 | Outpatient (BNV) | payer OTHER, SELFPAY | PROVIDERS: PCP Internal Medicine; Visit Provider Internal Medicine | DX: K21.00 Gastro-esophageal reflux disease with esophagitis, without bleeding (principal); R93.3 Abnormal findings on diagnostic imaging of other parts of digestive tract; J38.6 Stenosis of larynx; R13.19 Other dysphagia | CPT/HCPCS: 43239; 43248 ==

== ENCOUNTER 2024-12-23 10:00 | Outpatient (AMB) | payer OTHER, SELFPAY ==
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
--- OUTSIDE RECORDS SUMMARY | 2024-12-23 11:09 | XMS_ITS | Encounter Summary ---
Author Organization [facility] Address [address] [place] [id number] Phone Care Team Providers Care Sourcing Internship Name Role Phone Bhavani Porter MD Primary Care Provider [phone] Encounter Details Date Type Department Care Team (Late st Contact Info) Description 04/24/2017 Conversion Encounter [facility] - [address], [address] [place] [address] Bhavani Porter MD [address] [place] [address] Social History Tobacco Use Types Packs/Day Years [...] on filedocumented in this encounter Care Teams Sourcing Internship Relationship Specialty Start Date End Date Bhavani Porter MD [address] [place] [address] PCP - General 11/06/16 04/03/21 documented as of this encounter
--- OUTSIDE RECORDS SUMMARY | 2024-12-23 11:09 | XMS_ITS | Clinical Summary ---
Author Organization [facility] Address [address] [place] [phone] Phone Care Team Providers Care Prop Making Supervisor Name Role Phone Unavailable Primary Care Provider Unavailabl e Medications KURVELO 0.15-30 MG-MCG per tabletIndication s:Healthcare maintenance TAKE 1 TABLET ONCE A DAY 84 tablet 3 11/26/2017 Active Active Problems Patient Care Coordination No te Formatting of this note migh t be different from the original. 11/28/18 - [facility] [place] mailed, chart inactivated No additional [...] complete this topic Procedures * Due to [place] weeSPIN law, this organization might not be sharing sensitive test results. Procedure Name Priority Date/Time Associated Diagnosis Comments CHLAMYDIALGONORRHOEAL DETECTION BY PCR Routine 01/23/2016 12:00 AM EDT from Last 3 Months or Most Recently Relevant to Health Maintenance Results * Due to [place] weeSPIN law, this organization might not be sharing sensitive test results. * CHLAMYDIALGONORRHOEAL DETECTION BY PCR (01/23/2016 12:00 AM EDT) GC PCR Not Detected CONVERT ED LABS Comment: Eleanor Roper ??01/20/2016 05:29:26 PM > , Urine sample labeled and sent to [facility] Negative Reason: Received -[facility] Lab Order Shaper And Presser CHLAMYDIA PCR Not Detected CON VERTED LABS Comment: Eleanor Roper ??01/20/2016 05:29:26 PM > , Urine sample labeled and sent to [facility] Negative Reason: Received -[facility] Lab Order Shaper And Presser 01/23/2016 Narrative CONVERTED LABS - 01/23/2016 12:00 AM EDT Chlamydial/Gonorrhoeal Detection by PCR us Bhavani Porter MD EXTERNAL RESULTS CONSOLE Final Result CONVERTED LABS from Last 3 Months or Most Recently Relevant to Health Maintenance
== END 2024-12-23 12:43 | disposition home or self-care (01) ==
LOC: HO.HGI 10:00
PROVIDERS: PCP Internal Medicine; Visit Provider Internal Medicine
DX: K21.00 Gastro-esophageal reflux disease with esophagitis, without bleeding (principal); K29.70 Gastritis, unspecified, without bleeding; R09.A2 Foreign body sensation, throat
CPT/HCPCS: 99214